=== PATIENT | male | born 1985 | race Asian ===

== ENCOUNTER 2021-09-14 11:07 | Emergency (ER) | payer MEDICAID ==
[~2021-09-14] VITALS: Ht 180.3 cm; Wt 77.3 kg
[2021-09-14] MEDS ORDERED: MORPHINE SULFATE 4 MG/ML SYRINGE IVP ONE (12:00)
[2021-09-14] MEDS ORDERED: KETOROLAC TROMETHAMINE 30 MG/ML VIAL IVP ONE (12:00)
[2021-09-14] MEDS ORDERED: RINGERS SOLUTION,LACTATED 1,000 ML IV ONE (12:00)
[2021-09-14 12:10] LABS: BASOPHILS % (AUTO) 0.7 % (0.0-2.0); EOSINOPHILS % (AUTO) 1.7 % (1.0-6.0); HEMATOCRIT 48.3 % (41-53); HEMOGLOBIN 16.5 g/dL (13.5-17.5); LYMPHOCYTES # (AUTO) 1.8 K/uL (1.0-4.8); LYMPHOCYTES % (AUTO) 19.9 % (22.0-44.0); MEAN CORPUSCULAR HEMOGLOBIN 27.7 pg (26.0-34.0); MEAN CORPUSCULAR HGB CONC 34.1 G/dL (31.0-37.0); MEAN CORPUSCULAR VOLUME 81 fL (80-100); MONOCYTES # (AUTO) 0.5 K/uL (0.1-1.0); MONOCYTES % (AUTO) 5.1 % (2.0-9.0); NEUTROPHILS # (AUTO) 6.7 K/uL (1.8-7.7); NEUTROPHILS % (AUTO) 72.6 % (40.0-70.0); PLATELET COUNT (AUTO) 213 K/uL (150-450); RED BLOOD CELL COUNT(AUTO) 5.94 MIL/uL (4.50-5.90); RED CELL DISTRIBUTION WIDTH 13.6 % (11.5-14.5)
[2021-09-14 12:18] LABS: ANION GAP 10 mmol/L (8-16); CALCIUM, TOTAL 9.3 mg/dL (8.8-10.5); CARBON DIOXIDE 29 mmol/L (22-29); CHLORIDE 103 mmol/L (98-107); CREATININE 1.33 mg/dL (0.60-1.30); GLUCOSE,RANDOM 129 mg/dL (70-110); POTASSIUM 3.5 mmol/L (3.5-5.1); SODIUM SERUM 142 mmol/L (136-145); UREA NITROGEN, BLOOD 17 mg/dL (7-18)
[2021-09-14 12:21] LABS: GLOMERULAR FILTR. RATE CALC > 60 mL/min (>60)
[2021-09-14 12:24] LABS: ALANINE AMINOTRANSFERASE 53 U/L (12-78); ALBUMIN 4.3 g/dL (3.4-5.0); ALKALINE PHOSPHATASE 74 U/L (46-116); ASPARTATE AMINOTRANSFERASE 23 U/L (15-37); BILIRUBIN,TOTAL 0.8 mg/dL (0.1-1.0)
[2021-09-14 14:10] VITALS: BP 137/89
[2021-09-14 14:16] LABS: APPEARANCE,URINE CLOUDY (CLEAR); BILIRUBIN,URINE NEGATIVE (NEGATIVE); GLUCOSE, URINE (UA) NEGATIVE (NEGATIVE); KETONES,URINE TRACE mg/dL (NEGATIVE); LEUKOCYTE ESTERASE ,URINE NEGATIVE (NEGATIVE); NITRATE,URINE NEGATIVE (NEGATIVE); OCCULT BLOOD,URINE TRACE (NEGATIVE); PH,URINE 7.5 (5.0-8.0); PROTEIN,URINE NEGATIVE (NEGATIVE); UROBILINOGEN,URINE 0.2 mg/dL (<=1.0)
[2021-09-14 14:28] LABS: AMORPHOUS SEDIMENT,UR Few /LPF (None Seen); BACTERIA,URINE None Seen /HPF (None Seen); RBC,URINE 0-2 /HPF (0-2); SQUAMOUS EPITHELIAL CELL,UR Few /LPF (None Seen); WBC,URINE None Seen /HPF (0-5)
== END 2021-09-14 14:59 | disposition home or self-care (01) ==
LOC: EMS 11:07
DX: N20.0 Calculus of kidney (principal)
CPT/HCPCS: 36415; 80053; 81001; 85025; 96361; 96374; 96375; 99284; J1885; J2270; J7120

== ENCOUNTER 2021-10-18 17:33 | Emergency (ER) | payer MEDICAID ==
[~2021-10-18] VITALS: Ht 175.3 cm; Wt 90.9 kg
[2021-10-18] MEDS ORDERED: KETOROLAC TROMETHAMINE 30 MG/ML VIAL IVP ONE (18:15)
[2021-10-18] MEDS ORDERED: SODIUM CHLORIDE 0.9% 1,000 ML IV ONE (18:15)
[2021-10-18] MEDS ORDERED: ACETAMINOPHEN 1000 MG/ISO-OSM 100 ML IV ONE (19:30)
[2021-10-18 21:12] VITALS: BP 149/77
== END 2021-10-18 21:14 | disposition home or self-care (01) ==
LOC: EMS 17:35
DX: N20.0 Calculus of kidney (principal)
CPT/HCPCS: 74176; 81002; 96361; 96374; 96375; 99284; J0131; J1885; J7030

== ENCOUNTER 2021-11-18 10:20 | Emergency (ER) | payer MEDICAID ==
[~2021-11-18] VITALS: Ht 180.3 cm; Wt 93.2 kg
[2021-11-18 11:58] LABS: APPEARANCE,URINE CLEAR (CLEAR); BILIRUBIN,URINE NEGATIVE (NEGATIVE); GLUCOSE, URINE (UA) NEGATIVE (NEGATIVE); KETONES,URINE TRACE mg/dL (NEGATIVE); LEUKOCYTE ESTERASE ,URINE NEGATIVE (NEGATIVE); NITRATE,URINE NEGATIVE (NEGATIVE); OCCULT BLOOD,URINE TRACE (NEGATIVE); PH,URINE 5.5 (5.0-8.0); PROTEIN,URINE TRACE mg/dL (NEGATIVE); SPECIFIC GRAVITIY, URINE 1.025 (1.003-1.030); UROBILINOGEN,URINE <=1.0 mg/dL (<=1.0)
[2021-11-18 11:58] LABS: BASOPHILS % (AUTO) 0.2 % (0.0-2.0); EOSINOPHILS % (AUTO) 1.1 % (1.0-6.0); HEMATOCRIT 46.9 % (41-53); HEMOGLOBIN 15.9 g/dL (13.5-17.5); LYMPHOCYTES # (AUTO) 1.3 K/uL (1.0-4.8); LYMPHOCYTES % (AUTO) 14.4 % (22.0-44.0); MEAN CORPUSCULAR HEMOGLOBIN 28.1 pg (26.0-34.0); MEAN CORPUSCULAR HGB CONC 33.9 G/dL (31.0-37.0); MEAN CORPUSCULAR VOLUME 83 fL (80-100); MONOCYTES # (AUTO) 0.6 K/uL (0.1-1.0); MONOCYTES % (AUTO) 6.1 % (2.0-9.0); NEUTROPHILS # (AUTO) 7.3 K/uL (1.8-7.7); NEUTROPHILS % (AUTO) 78.2 % (40.0-70.0); PLATELET COUNT (AUTO) 182 K/uL (150-450); RED BLOOD CELL COUNT(AUTO) 5.65 MIL/uL (4.50-5.90); RED CELL DISTRIBUTION WIDTH 13.6 % (11.5-14.5)
[2021-11-18] MEDS: KETOROLAC TROMETHAMINE 60 MG/2 ML VIAL IM ONE (11:59)
[2021-11-18] MEDS: ONDANSETRON HCL 4 MG TABLET PO ONE (11:59)
[2021-11-18] MEDS: HYDROCODONE/ACETAMINOPHEN 5-325 MG TABLET PO ONE (12:00)
[2021-11-18 12:08] LABS: CALCIUM, TOTAL 9.1 mg/dL (8.8-10.5); CREATININE 1.73 mg/dL (0.60-1.30)
[2021-11-18 12:13] LABS: BACTERIA,URINE None Seen /HPF (None Seen); RBC,URINE 0-2 /HPF (0-2); WBC,URINE None Seen /HPF (0-5)
[2021-11-18 12:14] LABS: ALBUMIN 4.3 g/dL (3.4-5.0); BILIRUBIN,TOTAL 0.8 mg/dL (0.1-1.0); TOTAL PROTEIN, SERUM 7.8 g/dL (6.4-8.2)
[2021-11-18 13:07] VITALS: BP 120/72
[2021-11-18] MEDS ORDERED: TAMS-13 PO (14:04)
[2021-11-18] MEDS ORDERED: ONDA-104 PO (14:04)
[2021-11-18] MEDS ORDERED: HYDR-4723 PO (14:04)
== END 2021-11-18 14:40 | disposition home or self-care (01) ==
LOC: EMS 10:34
DX: N20.0 Calculus of kidney (principal); N13.9 Obstructive and reflux uropathy, unspecified; N20.9 Urinary calculus, unspecified; Z87.442 Personal history of urinary calculi
CPT/HCPCS: 36415; 74176; 80053; 81001; 83690; 85025; 96372; 99284; J1885; Q0162; Z7502; Z7610

== ENCOUNTER 2022-03-13 19:01 | Emergency (ER) | payer MEDICAID ==
[~2022-03-13] VITALS: Ht 175.3 cm; Wt 94.1 kg
[~2022-03-13 19:01] MED LIST: HYDR-4723 PO; ONDA-104 PO; TAMS-13 PO
[2022-03-13 20:14] LABS: BASOPHILS % (AUTO) 0.4 % (0.0-2.0); EOSINOPHILS % (AUTO) 4.5 % (1.0-6.0); HEMATOCRIT 44.9 % (41-53); HEMOGLOBIN 14.9 g/dL (13.5-17.5); LYMPHOCYTES # (AUTO) 2.3 K/uL (1.0-4.8); LYMPHOCYTES % (AUTO) 33.3 % (22.0-44.0); MEAN CORPUSCULAR HEMOGLOBIN 27.6 pg (26.0-34.0); MEAN CORPUSCULAR HGB CONC 33.3 G/dL (31.0-37.0); MEAN CORPUSCULAR VOLUME 83 fL (80-100); MONOCYTES # (AUTO) 0.4 K/uL (0.1-1.0); MONOCYTES % (AUTO) 5.3 % (2.0-9.0); NEUTROPHILS # (AUTO) 3.8 K/uL (1.8-7.7); NEUTROPHILS % (AUTO) 56.5 % (40.0-70.0); PLATELET COUNT (AUTO) 181 K/uL (150-450); RED BLOOD CELL COUNT(AUTO) 5.41 MIL/uL (4.50-5.90); RED CELL DISTRIBUTION WIDTH 13.4 % (11.5-14.5)
[2022-03-13 20:49] LABS: ANION GAP 8 mmol/L (8-16); CALCIUM, TOTAL 9.2 mg/dL (8.8-10.5); CARBON DIOXIDE 27 mmol/L (22-29); CHLORIDE 103 mmol/L (98-107); CREATININE 1.32 mg/dL (0.60-1.30); GLUCOSE,RANDOM 95 mg/dL (70-110); POTASSIUM 4.1 mmol/L (3.5-5.1); SODIUM SERUM 138 mmol/L (136-145); UREA NITROGEN, BLOOD 20 mg/dL (7-18)
[2022-03-13 20:50] LABS: GLOMERULAR FILTR. RATE CALC > 60 mL/min (>60)
[2022-03-13 20:55] LABS: ALANINE AMINOTRANSFERASE 31 U/L (12-78); ALBUMIN 3.8 g/dL (3.4-5.0); ALKALINE PHOSPHATASE 65 U/L (46-116); ASPARTATE AMINOTRANSFERASE 19 U/L (15-37); BILIRUBIN,TOTAL 0.4 mg/dL (0.1-1.0); LIPASE 130 U/L (73-393)
[2022-03-13 21:20] VITALS: BP 129/77
== END 2022-03-13 21:44 | disposition home or self-care (01) ==
LOC: EMS 19:15
DX: K80.20 Calculus of gallbladder without cholecystitis without obstruction (principal); R10.84 Generalized abdominal pain; Z87.442 Personal history of urinary calculi
CPT/HCPCS: 74176; 80053; 81002; 83690; 85025; 99284

== ENCOUNTER 2022-10-26 13:13 | Emergency (ER) | payer MEDICAID ==
[~2022-10-26] VITALS: Ht 180.3 cm; Wt 95.5 kg
[2022-10-26] MEDS ORDERED: PERTUSS(ACELL),DIPH,TET VAC/PF 0.5 ML SYRINGE IM. ONE (13:30)
[2022-10-26] MEDS ORDERED: LIDOCAINE 5% TRANSDERMAL PATCH TD ONE (15:15)
[2022-10-26] MEDS ORDERED: BACLOFEN 10 MG TABLET PO ONE (15:15)
[2022-10-26] MEDS ORDERED: IBUPROFEN 600 MG TABLET PO ONE (15:15)
[2022-10-26] MEDS ORDERED: BACL10TA PO (16:01)
[2022-10-26] MEDS ORDERED: IBUP-1492 PO (16:01)
[2022-10-26 16:54] VITALS: BP 128/79
== END 2022-10-26 17:14 | disposition home or self-care (01) ==
LOC: EMS 13:20
DX: M25.561 Pain in right knee (principal); F12.90 Cannabis use, unspecified, uncomplicated; V29.99XA Rider (driver) (passenger) of other motorcycle injured in unspecified traffic accident, initial encounter; Y93.89 Activity, other specified; Y92.89 Other specified places as the place of occurrence of the external cause; Y99.8 Other external cause status
CPT/HCPCS: 90471; 90715; 99283

== ENCOUNTER 2023-11-26 23:18 | Emergency (ER) | payer MEDICAID, OTHER ==
[~2023-11-26] VITALS: Ht 170.2 cm; Wt 94.5 kg
[~2023-11-26 23:18] MED LIST changes: +BACL10TA PO; +IBUP-1492 PO; -TAMS-13 PO; +TAMS0.4C94 PO
[2023-11-27 00:07] VITALS: BP 134/93; PULSE 83; RESP 18; TEMP 98
[2023-11-27] MEDS: IBUPROFEN 600 MG TABLET PO ONE (01:39)
[2023-11-27] MEDS: BACLOFEN 10 MG TABLET PO ONE (01:39)
[2023-11-27] MEDS ORDERED: METH-812 PO (02:04)
[2023-11-27] MEDS ORDERED: IBUP-1554 PO (02:04)
[2023-11-27] MEDS ORDERED: FLUT16SP NASAL (02:35)
== END 2023-11-27 02:09 | disposition home or self-care (01) ==
LOC: EMS 23:20
DX: M54.42 Lumbago with sciatica, left side (principal); F12.90 Cannabis use, unspecified, uncomplicated
CPT/HCPCS: 99283

== ENCOUNTER 2024-07-13 17:51 | Emergency (ER) | payer OTHER ==
[~2024-07-13] VITALS: Ht 167.6 cm; Wt 97.7 kg
[~2024-07-13 17:51] MED LIST changes: +FLUT16SP NASAL; +HYDR-4062 PO; -HYDR-4723 PO; +IBUP-1554 PO; +METH-812 PO
[2024-07-13 17:56] VITALS: TEMP 98.5
[2024-07-13 19:05] LABS: ANION GAP 8 mmol/L (8-16); CALCIUM, TOTAL 8.9 mg/dL (8.8-10.5); CARBON DIOXIDE 29 mmol/L (22-29); CHLORIDE 103 mmol/L (98-107); CREATININE 1.08 mg/dL (0.60-1.30); GLOMERULAR FILTR. RATE CALC > 60 mL/min (>60); GLUCOSE,RANDOM 91 mg/dL (70-110); LIPASE 50 U/L (16-77); LYMPHOCYTES # (AUTO) 2.6 K/uL (1.0-4.8); MONOCYTES % (AUTO) 6.1 % (2.0-9.0); POTASSIUM 4.1 mmol/L (3.5-5.1); SODIUM SERUM 140 mmol/L (136-145); UREA NITROGEN, BLOOD 16 mg/dL (7-18)
[2024-07-13 19:07] LABS: BASOPHILS % (AUTO) 0.7 % (0.0-2.0); EOSINOPHILS % (AUTO) 5.1 % (1.0-6.0); HEMATOCRIT 48.9 % (41-53); HEMOGLOBIN 16.4 g/dL (13.5-17.5); LYMPHOCYTES % (AUTO) 44.9 % (22.0-44.0); MEAN CORPUSCULAR HEMOGLOBIN 28.7 pg (26.0-34.0); MEAN CORPUSCULAR HGB CONC 33.6 G/dL (31.0-37.0); MEAN CORPUSCULAR VOLUME 86 fL (80-100); MONOCYTES # (AUTO) 0.4 K/uL (0.1-1.0); NEUTROPHILS # (AUTO) 2.5 K/uL (1.8-7.7); NEUTROPHILS % (AUTO) 43.2 % (40.0-70.0); PLATELET COUNT (AUTO) 193 K/uL (150-450); RED BLOOD CELL COUNT(AUTO) 5.72 MIL/uL (4.50-5.90); RED CELL DISTRIBUTION WIDTH 13.6 % (11.5-14.5); WHITE BLOOD COUNT (AUTO) 5.7 K/uL (4.5-11.0)
[2024-07-13] MEDS ORDERED: SODIUM CHLORIDE 0.9% 100 ML ONE (19:36)
[2024-07-13] MEDS ORDERED: IOHEXOL 350 MG/ML 100 ML VIAL ONE (19:36)
[2024-07-13 21:05] VITALS: BP 121/87; PULSE 82; RESP 16; O2SAT 99
[2024-07-13] MEDS ORDERED: METH-812 PO (21:26)
[2024-07-13 21:50] LABS: APPEARANCE,URINE CLEAR (CLEAR); BILIRUBIN,URINE NEGATIVE (NEGATIVE); COLOR,URINE COLORLESS (YELLOW); GLUCOSE, URINE (UA) NEGATIVE (NEGATIVE); KETONES,URINE NEGATIVE (NEGATIVE); LEUKOCYTE ESTERASE ,URINE NEGATIVE (NEGATIVE); NITRATE,URINE NEGATIVE (NEGATIVE); OCCULT BLOOD,URINE NEGATIVE (NEGATIVE); PH,URINE 6.5 (5.0-8.0); PROTEIN,URINE NEGATIVE (NEGATIVE); SPECIFIC GRAVITIY, URINE 1.009 (1.003-1.030); UROBILINOGEN,URINE <=1.0 mg/dL (<=1.0)
== END 2024-07-13 21:27 | disposition home or self-care (01) ==
LOC: EMS 17:51
DX: M54.50 Low back pain, unspecified (principal); R10.84 Generalized abdominal pain; F12.90 Cannabis use, unspecified, uncomplicated; Z88.0 Allergy status to penicillin; Z87.442 Personal history of urinary calculi; Z98.890 Other specified postprocedural states
CPT/HCPCS: 99285; 74177; 80048; 81003; 83690; 85025; 36415; Q9967; J7050

== ENCOUNTER 2025-02-03 23:04 | Emergency (ER) | payer OTHER ==
[~2025-02-03] VITALS: Ht 172.7 cm; Wt 90.9 kg
[~2025-02-03 23:04] MED LIST changes: -BACL10TA PO; -FLUT16SP NASAL; -HYDR-4062 PO; -IBUP-1492 PO; -IBUP-1554 PO; -ONDA-104 PO; -TAMS0.4C94 PO
[2025-02-04 00:26] VITALS: BP 141/89; PULSE 89; RESP 16; TEMP 97.3; O2SAT 98
[2025-02-04] MEDS: IBUPROFEN 400 MG TABLET PO ONE (01:04)
[2025-02-04] MEDS: CETIRIZINE HCL 10 MG TABLET PO ONE (01:04)
[2025-02-04] MEDS: ACETAMINOPHEN 500 MG TABLET PO ONE (01:04)
[2025-02-04] MEDS: OFLOXACIN 0.3% 5 ML OTIC SOLUTION AD ONE (01:04)
[2025-02-04] MEDS ORDERED: CETI-450 PO (01:13)
== END 2025-02-04 01:30 | disposition home or self-care (01) ==
LOC: EMS 23:12
DX: H60.8X1 Other otitis externa, right ear (principal); H69.91 Unspecified Eustachian tube disorder, right ear; F20.9 Schizophrenia, unspecified; H93.11 Tinnitus, right ear; Z87.442 Personal history of urinary calculi; F12.90 Cannabis use, unspecified, uncomplicated; Z88.0 Allergy status to penicillin; Z79.899 Other long term (current) drug therapy; Z91.018 Allergy to other foods
CPT/HCPCS: 99284; Z7502; Z7610

== ENCOUNTER 2025-04-05 22:54 | Emergency (ER) | payer OTHER ==
[~2025-04-05] VITALS: Ht 170.2 cm; Wt 95.5 kg
[~2025-04-05 22:54] MED LIST changes: +CETI10TA77 PO
[2025-04-05 23:01] VITALS: TEMP 97.9
[2025-04-06 00:18] VITALS: BP 155/65; PULSE 96; RESP 16; O2SAT 96
[2025-04-06 00:43] LABS: PLATELET COUNT (AUTO) 206 K/uL (150-450); RED BLOOD CELL COUNT(AUTO) 5.39 MIL/uL (4.50-5.90); RED CELL DISTRIBUTION WIDTH 13.4 % (11.5-14.5); WHITE BLOOD COUNT (AUTO) 5.7 K/uL (4.5-11.0)
[2025-04-06 00:56] LABS: CALCIUM, TOTAL 8.3 mg/dL (8.8-10.5); CREATININE 1.17 mg/dL (0.60-1.30); GLOMERULAR FILTR. RATE CALC > 60 mL/min (>60); GLUCOSE,RANDOM 120 mg/dL (70-110); SODIUM SERUM 140 mmol/L (136-145); UREA NITROGEN, BLOOD 13 mg/dL (7-18)
[2025-04-06 01:06] LABS: TROPONIN I-HIGH SENSITIVITY 4 ng/L (<76)
[2025-04-06] MEDS ORDERED: FAMO20 PO (01:19)
[2025-04-06] MEDS: PANTOPRAZOLE SODIUM 40 MG DR TABLET PO ONE (01:20)
== END 2025-04-06 01:42 | disposition home or self-care (01) ==
LOC: EMS 22:54
DX: R10.13 Epigastric pain (principal); F20.9 Schizophrenia, unspecified; F12.90 Cannabis use, unspecified, uncomplicated; Z87.442 Personal history of urinary calculi; Z88.0 Allergy status to penicillin; Z91.018 Allergy to other foods; Z79.899 Other long term (current) drug therapy; Z98.890 Other specified postprocedural states
CPT/HCPCS: 71045; 80048; 84484; 85025; 93005; 99285; 36415-L1; 36415-TC